=== PATIENT | female | born 2000 | race Caucasian/White ===

== ENCOUNTER → 2020-07-30 | Outpatient (CLI) | payer SELFPAY ==
[2020-07-30 12:34] LABS: HEMOGLOBIN 11.3 G/DL (11.5-16.0); MEAN PLATELET VOLUME 9.7 FL (7.4-10.4); WHITE BLOOD COUNT 9.1 10^3/uL (4.3-11.0)
[2020-07-30 23:01] LABS: HEPATITIS C ANTIBODY C Non-Reactive (Non-Reactive)
== END ==
LOC: LAB FS 11:16
PROVIDERS: ATTEND Family Medicine
DX: Z34.00 Encounter for supervision of normal first pregnancy, unspecified trimester (principal); Z3A.00 Weeks of gestation of pregnancy not specified
CPT/HCPCS: 36415; 85027; 86703; 86762; 86780; 86803; 86850; 86900; 86901; 87077; 87088; 87186; 87340

== ENCOUNTER → 2020-09-01 | Outpatient (CLI) | payer SELFPAY ==
[2020-09-01 13:20] LABS: HEMOGLOBIN 11.3 G/DL (11.5-16.0); WHITE BLOOD COUNT 10.7 10^3/uL (4.3-11.0)
[2020-09-01 13:21] LABS: MEAN PLATELET VOLUME 10.5 FL (7.4-10.4)
== END ==
LOC: LAB FS 10:51
PROVIDERS: ATTEND Family Medicine
DX: Z34.03 Encounter for supervision of normal first pregnancy, third trimester (principal)
CPT/HCPCS: 36415; 82950; 85027

== ENCOUNTER 2020-09-29 02:15 | Inpatient (IN) | payer OTHER ==
[~2020-09-29] VITALS: Ht 160 cm; Wt 78.4 kg
[2020-09-29] VITALS (20 sets, daily range): BP systolic 105–155; BP diastolic 55–87
[2020-09-29] MEDS ORDERED: D5 LR IV SOLUTION 1,000 ML IV ONE (03:13)
[2020-09-29] MEDS ORDERED: D5 LR IV SOLUTION 1,000 ML IV SCH (03:15)
[2020-09-29] MEDS ORDERED: AMPICILLIN FOR IV USE 2,000 MG in WATER (STERILE) FOR INJECTION 14.8 ML IV SCH (03:22)
[2020-09-29 03:32] LABS: BASOPHILS # (AUTO) 0.1 10^3/uL (0.0-0.1); BASOPHILS % (AUTO) 0 % (0-10); EOSINOPHILS % (AUTO) 0 % (0-10); HEMATOCRIT 34 % (35-52); HEMOGLOBIN 11.9 g/dL (11.5-16.0); LYMPHOCYTES # (AUTO) 1.6 10^3/uL (1.0-4.0); LYMPHOCYTES % (AUTO) 10 % (12-44); MEAN CORPUSCULAR HEMOGLOBIN 32 pg (25-34); MEAN CORPUSCULAR HGB CONC 35 g/dL (32-36); MEAN CORPUSCULAR VOLUME 92 fL (80-99); MEAN PLATELET VOLUME 10.9 fL (9.0-12.2); MONOCYTES % (AUTO) 6 % (0-12); NEUTROPHILS # (AUTO) 13.8 10^3/uL (1.8-7.8); NEUTROPHILS % (AUTO) 83 % (42-75); PLATELET COUNT 261 10^3/uL (130-400); WHITE BLOOD COUNT 16.6 10^3/uL (4.3-11.0)
[2020-09-29] MEDS: OXYTOCIN PRE-MIX DRIP 1,000 ML IV ONE ×2 (04:02→05:31)
[2020-09-29] MEDS ORDERED: LIDOCAINE/EPI 2% 1:200,00 (XYLOCAINE) 10 ML VIAL ONE (04:46)
--- NOTE | 2020-09-29 05:50 | History & Physical-OB ---
OB - Chief Complaint & HPI Date/Time Date of Admission: Date of Admission: Sep 29, 2020 at 03:00 Date seen by a Provider: Sep 29, 2020 Time Seen by a Provider: 03:00 Chief Complaint/History OB-Reason for Admission/Chief: Onset of Labor Hx : 1 Hx Para: 0 Expected Date of Delivery: Oct 26, 2020 Gestational Age in Weeks: 36 Gestational Age in Days: 1 Admission Nurse Assessment Rev: Yes Allergies and Home Medications Allergies Coded Allergies: No Known Drug Allergies (Unverified , 09/29/20) Patient Home Medication List Home Medication List Reviewed: Yes OB - History Hx of Present Care: Yes (with Dr. Victoria in [place]) Ultrasounds: Normal mid trimester US Obstetrical Complications: None Medical Complications: None Patient Past Medical History n/a Immunizations Hepatitis A: No Hepatitis B: No OB - Admission Exam Physical Exam Vitals: Vital Signs 09/29/20 03:54 Pulse 53 Resp 18 B/P (MAP) 139/87 (104) O2 Delivery Room Air HEENT: NCAT Heart: Rhythm Normal Lungs: Clear Abdomen: Gravid Extremities: Normal Reflexes: Normal Cervical Dilatation: 5cm Effacement: 75% Station: -1 Membranes: Ruptured Amniotic Fluid: Clear Heart Rate: 130's Accelerations: Accelerations Present Decelerations: No Decelerations Short Term Variability: Present Longterm Variability: Average (6-25) Contractions on Admission: 6-10 Minutes Apart Intensity: Mild Labs Laboratory Tests Test 09/29/20 03:20 Range/Units White Blood Count 16.6 H 4.3-11.0 10^3/uL Red Blood Count 3.75 L 3.80-5.11 10^6/uL Hemoglobin 11.9 11.5-16.0 g/dL Hematocrit 34 L 35-52 % Mean Corpuscular Volume 92 80-99 fL Mean Corpuscular Hemoglobin 32 25-34 pg Mean Corpuscular Hemoglobin Concent 35 32-36 g/dL Red Cell Distribution Width 12.4 10.0-14.5 % Platelet Count 261 130-400 10^3/uL Mean Platelet Volume 10.9 9.0-12.2 fL Immature Granulocyte % (Auto) 0 % Neutrophils (%) (Auto) 83 H 42-75 % Lymphocytes (%) (Auto) 10 L 12-44 % Monocytes (%) (Auto) 6 0-12 % Eosinophils (%) (Auto) 0 0-10 % Basophils (%) (Auto) 0 0-10 % Neutrophils # (Auto) 13.8 H 1.8-7.8 10^3/uL Lymphocytes # (Auto) 1.6 1.0-4.0 10^3/uL Monocytes # (Auto) 1.0 0.0-1.0 10^3/uL Eosinophils # (Auto) 0.0 0.0-0.3 10^3/uL Basophils # (Auto) 0.1 0.0-0.1 10^3/uL Immature Granulocyte # (Auto) 0.1 0.0-0.1 10^3/uL OB - Assessment/Plan/Diagnosis Assessment Assessment: active labor, rupture of membranes Admission Dx 20 yo @ 36.1 Active labor GBS unknown Admission Status: Inpatient Order (span 2 midnights) Reason for Inpatient Admission: Active labor at 36 weeks Plan Plan: Expectant Management Other Plan Ampicillin started due to , and unknown GBS. GILMA MABRY DO Sep 29, 2020 05:50
[2020-09-29] MEDS ORDERED: BENZ78AE5 TP (05:53)
[2020-09-29] MEDS ORDERED: IBUP-844 PO (05:53)
[2020-09-29] MEDS ORDERED: PNV1TABL67 PO (05:53)
[2020-09-29] MEDS ORDERED: ACHD5005 PO (05:53)
[2020-09-29] MEDS ORDERED: DCS100C PO (05:53)
--- NOTE | 2020-09-29 05:55 | Discharge Inst-Women's Service ---
Discharge Inst-Women's Serv Depart Medication/Instructions New, Converted or Re-Newed RX: RX on Chart Final Diagnosis PPD 1 NVD Problems Reviewed?: Yes Consults/Follow Up Additional Follow Up: Yes Orders/Referrals Dr. Victoria in 6 weeks Activity Activity: Activity as Tolerated Driving Instructions: No Driving for 1 Week NO SMOKING: NO SMOKING Nothing Inside Vagina: No Douching, No [place], No Tampons Diet Discharge Diet: No Restrictions Symptoms to Report to : Bleeding Excessive, Pain Increased, Fever Over 101 Degrees F, Vaginal Bleeding Increase, Questions/Concerns For Any Problems or Questions: Contact Your Physician GILMA MABRY DO Sep 29, 2020 05:55
[2020-09-29] MEDS ORDERED: TETANUS,DIPTH,PERTUSS P/F (BOOSTRIX) 0.5 ML VIAL IM ONE (06:00)
[2020-09-29] MEDS ORDERED: WITCH HAZEL(TUCKS) 40 EA JAR TOP PRN (06:00)
[2020-09-29] MEDS ORDERED: BENZOCAINE/MENTHOL (DERMOPLAST) 60 ML CAN TP PRN (06:00)
[2020-09-29] MEDS ORDERED: DIBUCAINE (NUPERCAINAL) 1% OINT 30 GM TOP PRN (06:00)
[2020-09-29] MEDS ORDERED: CATHETER FLUSH 10 ML SYR IV SCH ×2 (06:00)
[2020-09-29] MEDS ORDERED: OXYTOCIN PRE-MIX DRIP 500 ML IV SCH (06:00)
[2020-09-29] MEDS ORDERED: MEASLES,MUMPS,RUBELLA 1 EA INJ SQ ONE (06:00)
[2020-09-29] MEDS ORDERED: HYDROcodone/APAP 5 MG/325 MG (LORTAB) TAB PO PRN (06:00)
--- NOTE | 2020-09-29 06:00 | OB Labor & Delivery Record ---
L&D History Date of Service Date of Service: Sep 29, 2020 History Expected Date of Delivery: Oct 26, 2020 Gestational Age in Weeks: 36 Hx : 1 Hx Para: 0 Complications Events: Routine care Operative Indications (Cesarea: N/A-Vaginal Delivery Intrapartal Events: None L&D Stage1 Stage One Onset of Labor - Date: Sep 29, 2020 Monitors and Tracing Monitor Mode: External Heart Rate: 130 Monitor Decelerations: None Station: -2 Shelter Variability: Average (6-10) Short Term Variability: Present Presentation: Vertex Vital Signs VS - Last 72 Hours, by Label 09/29/20 09/29/20 09/29/20 02:35 02:35 03:54 Temp 37.2 37.2 Pulse 69 69 53 Resp 18 18 18 B/P (MAP) 140/77 (98) 139/87 (104) Pulse Ox 99 99 O2 Delivery Room Air Room Air Room Air Rupture of Membranes Spontaneous Ruture of Membrane: Yes Amniotic Membrane Rupture Time: 0000 Amniotic Membrane Fluid Desc.: Clear Vaginal Bleeding Description: Normal Show Progress/Notes Patient admitted in active labor 6 cm SROM. She progressed with no analgesia and no augmentation to complete and +3 station L&D Stage2 Stage Two Stage II Date: Sep 29, 2020 Monitors and Tracing Monitor Mode: External Heart Rate: 130 Monitor Accelerations: Uniform Monitor Decelerations: None Plywood Patcher Variability: Average (6-10) Short Term Variability: Present Position: Right Occiput Anterior Presentation: Vertex Cord Descript/Complications Cord Vessel Description: 3 Vessels Delivery Type Infant Delivery Method: Spontaneous Vaginal Anterior Shoulder: Right Episiotomy/Perineal Laceration Laceraction(s)/Extensions: Yes Episiotomy Description: Perineal Extension/lac, 1st degree Degree (describe repair) 1st degree perineal laceration repaired using 3-0 rapide in usual fashion Condition of Infant Delivery 1 minute Comment: 8 5 minute Comment: 9 Notes Live male infant weight pending Condition of Infant Condition of : Living Exam: No Observed Abnormalities Resuscitation Resuscitation: N/A - Spontaneous Resp L&D Stage3 Stage Three Stage III Date: Sep 29, 2020 Pictocin Pitocin Administration Comment: 30 mu wide open after delviery of placenta Placenta Delivery Placenta Delivery: Spontaneous Delivery Summary Summary Estimated blood loss (mL): 300 Attending at delivery: Gilma Mabry DO Condition of Delivery Examined: Cervix Examined, Uterus Explored Post Hemorrhage: No Condition of Mother stable Condition of Infant (s) stable GILMA MABRY DO Sep 29, 2020 06:00
[2020-09-29] MEDS ORDERED: AMPICILLIN FOR IV USE 1,000 MG in WATER (STERILE) FOR INJECTION 7.4 ML IV SCH (07:30)
[2020-09-29] MEDS: IBUPROFEN 600 MG (MOTRIN) TAB PO SCH ×3 (08:00→22:10)
[2020-09-29] MEDS: PRENATAL VITAMIN 1 EA TAB PO SCH ×2 (09:00→13:22)
[2020-09-29] MEDS: DOCUSATE SODIUM 100 MG (COLACE) CAP PO SCH ×3 (09:00→20:34)
[2020-09-29] MEDS: FERROUS SULF 325 MG (IRON) TAB PO SCH ×2 (09:00→13:22)
[2020-09-30 01:00] VITALS: BP 113/53
[2020-09-30] MEDS: IBUPROFEN 600 MG (MOTRIN) TAB PO SCH ×3 (04:30→18:00)
[2020-09-30 05:30] VITALS: BP 120/75
[2020-09-30 06:16] LABS: BASOPHILS % (AUTO) 0 % (0-10); EOSINOPHILS # (AUTO) 0.1 10^3/uL (0.0-0.3); EOSINOPHILS % (AUTO) 1 % (0-10); HEMATOCRIT 35 % (35-52); LYMPHOCYTES # (AUTO) 1.9 10^3/uL (1.0-4.0); LYMPHOCYTES % (AUTO) 17 % (12-44); MEAN CORPUSCULAR HEMOGLOBIN 32 pg (25-34); MEAN CORPUSCULAR HGB CONC 35 g/dL (32-36); MEAN CORPUSCULAR VOLUME 92 fL (80-99); MEAN PLATELET VOLUME 10.9 fL (9.0-12.2); MONOCYTES # (AUTO) 0.8 10^3/uL (0.0-1.0); MONOCYTES % (AUTO) 7 % (0-12); NEUTROPHILS # (AUTO) 8.2 10^3/uL (1.8-7.8); NEUTROPHILS % (AUTO) 74 % (42-75); PLATELET COUNT 239 10^3/uL (130-400)
[2020-09-30 08:40] VITALS: BP 101/58
--- NOTE | 2020-09-30 10:52 | Progress Note ---
Standard Progress Note Progress Notes/Assess & Plan Date Seen by a Provider: Sep 30, 2020 Time Seen by a Provider: 10:51 Progress/Assessment & Plan This patient is without complaint. She is ambulating, voiding, tolerating oral intake well and has good pain control. Vital Signs Date Time Temp Pulse Resp B/P (MAP) Pulse Ox O2 Delivery O2 Flow Rate FiO2 09/30/20 08:40 36.6 62 18 101/58 (72) Room Air 09/30/20 05:30 36.4 66 16 120/75 (90) 98 Room Air 09/30/20 01:00 36.5 56 16 113/53 (73) 98 Room Air 09/29/20 20:30 36.5 66 16 124/58 (80) 98 Room Air 09/29/20 16:00 36.7 61 18 118/64 (82) 98 Room Air 09/29/20 13:00 36.8 66 18 119/56 (77) 97 Room Air Vital signs are stable. Patient is afebrile. Abdomen is benign. Extremities show no clubbing or cyanosis. Assessment and plan day #1 status post vaginal delivery doing well. Plan is for routine convalescent care with consideration of discharge home LUIS ISLAS MD Sep 30, 2020 10:52
[2020-09-30 17:10] VITALS: BP 100/61
[2020-09-30 19:35] VITALS: BP 128/63
[2020-10-01 06:00] VITALS: BP 121/58
--- NOTE | 2020-10-01 08:18 | Progress Note ---
Standard Progress Note Progress Notes/Assess & Plan Date Seen by a Provider: Oct 01, 2020 Time Seen by a Provider: 08:17 Progress/Assessment & Plan This patient is without complaint. She is ambulating, voiding, tolerating oral intake well and has good pain control. Vital Signs Date Time Temp Pulse Resp B/P (MAP) Pulse Ox O2 Delivery O2 Flow Rate FiO2 09/30/20 08:40 36.6 62 18 101/58 (72) Room Air 09/30/20 05:30 36.4 66 16 120/75 (90) 98 Room Air 09/30/20 01:00 36.5 56 16 113/53 (73) 98 Room Air 09/29/20 20:30 36.5 66 16 124/58 (80) 98 Room Air 09/29/20 16:00 36.7 61 18 118/64 (82) 98 Room Air 09/29/20 13:00 36.8 66 18 119/56 (77) 97 Room Air Vital signs are stable. Patient is afebrile. Abdomen is benign. Extremities show no clubbing or cyanosis. Assessment and plan day #1 status post vaginal delivery doing well. Plan is for routine convalescent care with consideration of discharge hOME October 01, 2020 Patient is without complaint. She is ambulating, voiding, tolerating oral intake well has good pain control. Patient is requesting discharge home. Vital signs are stable. Patient is afebrile. Fundus is firm below the umbilicus nontender. Extremities show no clubbing cyanosis. Is normal in size. Assessment and plan day #2 status post term spontaneous vaginal to be doing well. Plan is to discharge home with follow-up in clinic LUIS ISLAS MD Oct 01, 2020 08:18
[2020-10-01 08:20] VITALS: BP 106/59
== END 2020-10-01 11:30 | disposition home or self-care (01) | DRG 807 ==
LOC: WSo 02:15 → LDRP 02:16 → WSo 02:59 → LDRP 03:00
PROVIDERS: ADMIT Obstetrics & Gynecology; ATTEND Obstetrics & Gynecology
PROC: 10E0XZZ Delivery of Products of Conception, External Approach (ICD-10-PCS; principal; 2020-09-29)
PROC: 0HQ9XZZ Repair Perineum Skin, External Approach (ICD-10-PCS; 2020-09-29)
DX: O60.14X0 Preterm labor third trimester with preterm delivery third trimester, not applicable or unspecified (principal); Z37.0 Single live birth; O70.0 First degree perineal laceration during delivery; Z3A.36 36 weeks gestation of pregnancy
CPT/HCPCS: 36415; 85025; 86850; 86900; 86901; 88307; 99212

== ENCOUNTER 2022-10-09 11:04 | Emergency (ER) | payer SELFPAY ==
[~2022-10-09] VITALS: Ht 157.5 cm; Wt 73.9 kg
[~2022-10-09 11:04] MED LIST: ACHD5005 PO; BENZ78AE5 TP; DOCU-239 PO; IBUP-844 PO; PNV1TABL67 PO
--- NOTE | 2022-10-09 11:21 | ED GU-Female ---
General Chief Complaint: OB < 20 WEEKS Stated Complaint: VAGINAL BLEEDING Nursing Triage Note: PT AMBULATE TO ROOM FS01 WITHOUT DIFFICULTY WITH C/O VAGINAL BLEEDING STARTING SUNDAY THAT HAS WORSENED TODAY. PT REPORTS LMP WAS IN JULY AND BELIEVES SHE . Source: patient Exam Limitations: no limitations History of Present Illness Date Seen by Provider: Oct 09, 2022 Time Seen by Provider: 11:07 Initial Comments 22-year-old female at roughly 12w3d EGA by LMP sometime in early July coming in due to vaginal bleeding from walk in clinic. She has not had any OB care at this time. The first baby was born in the hospital, second baby was born at home as she is [facility]. The patient started having some vaginal bleeding 2 days ago, and its picked up a little bit more today. She last changed her pad about a couple hours ago, and she feels like it is probably saturated and needs changed again. She is wanting to know if she is having a miscarriage. Denies any significant abdominal pain, vaginal discharge, dysuria, diarrhea, fever, chills, or any other concerns. Allergies and Home Medications Allergies Coded Allergies: No Known Drug Allergies (Unverified , 09/29/20) Patient Home Medication List Home Medication List Reviewed: Yes Benzocaine/Menthol (Dermoplast Pain Relieving [place]) 78 Gm Aerosol, 56 ML TP UD PRN for PAIN- SEE INSTRUCTIONS Prescribed by: GILMA MABRY on 09/29/20552 Docusate Sodium (Dok) 100 Mg Capsule, 100 MG PO BID PRN for CONSTIPATION-1ST LINE Prescribed by: GILMA MABRY on 09/29/20 05 Hydrocodone Bit/Acetaminophen (HYDROcodone/APAP 5 MG/325 MG TAB) 1 Tab Tab, 1-2 EA PO Q6HR PRN for PAIN-MODERATE (5-7) Prescribed by: GILMA MABRY on 09/29/20 05 Ibuprofen (Ibu) 600 Mg Tablet, 600 MG PO Q6HR Prescribed by: GILMA MABRY on 09/29/20 05 Pnv with Ca,No.72/Iron/FA (Pnv Plus Multivit Tab) 1 Each Tablet, 1 EA PO DAILY@0700 Prescribed by: GILMA MABRY on 09/29/20 05 Review of Systems Review of Systems Constitutional: No fever EENTM: no symptoms reported Respiratory: no symptoms reported Cardiovascular: no symptoms reported Gastrointestinal: no symptoms reported Genitourinary: see HPI Musculoskeletal: no symptoms reported Skin: no symptoms reported Psychiatric/Neurological: No Symptoms Reported Endocrine: No Symptoms Reported Hematologic/Lymphatic: No Symptoms Reported All Other Systemes Reviewed Negative Unless Noted: Yes Past Whtuafn-Djvjuj-Uhxvlt Hx Patient Social History Tobacco Use?: No Use of E-Cig and/or Vaping dev: No Substance use?: No Alcohol Use?: No Pt feels they are or have been: Unable to obtain Past Medical History Surgeries: No Physical Exam Vital Signs Vital Signs - First Documented 10/09/22 11:07 Temp 36.4 Pulse 75 Resp 17 B/P (MAP) 121/74 (90) O2 Delivery Room Air Capillary Refill : Less Than 3 Seconds Height, Weight, BMI Height: '" Weight: lbs. oz. kg; 29.00 BMI Method: General Appearance: WD/WN, no apparent distress HEENT: PERRL/EOMI, normal ENT inspection, pharynx normal Neck: non-tender, full range of motion, supple, normal inspection Cardiovascular: regular rate, rhythm, no edema, no murmur Respiratory: chest non-tender, lungs clear, normal breath sounds, no respiratory distress, no accessory muscle use Gastrointestinal: normal bowel sounds, non tender, soft; No distended, No guarding, No rebound Back: normal inspection, no CVA tenderness Extremities: normal range of motion, non-tender, normal inspection, no pedal edema, no calf tenderness, normal capillary refill Neurologic/Psychiatric: no motor/sensory deficits, alert, normal mood/affect Skin: normal color, warm/dry Progress/Results/Core Measures Suspected Sepsis SIRS Temperature: Pulse: 75 Respiratory Rate: 17 Laboratory Tests 10/09/22 11:20: White Blood Count 7.4 Blood Pressure 121 /74 Mean: 90 Laboratory Tests 10/09/22 11:20: Creatinine 0.74, INR Comment 1.0, Platelet Count 335, Total Bilirubin 0.5 Results/Orders Lab Results Laboratory Tests Test 10/09/22 11:20 10/09/22 11:37 Range/Units White Blood Count 7.4 4.3-11.0 10^3/uL Red Blood Count 4.09 3.80-5.11 10^6/uL Hemoglobin 12.4 11.5-16.0 g/dL Hematocrit 36 35-52 % Mean Corpuscular Volume 89 80-99 fL Mean Corpuscular Hemoglobin 30 25-34 pg Mean Corpuscular Hemoglobin Concent 34 32-36 g/dL Red Cell Distribution Width 12.3 10.0-14.5 % Platelet Count 335 130-400 10^3/uL Mean Platelet Volume 9.7 9.0-12.2 fL Immature Granulocyte % (Auto) 0 % Neutrophils (%) (Auto) 61 42-75 % Lymphocytes (%) (Auto) 30 12-44 % Monocytes (%) (Auto) 8 0-12 % Eosinophils (%) (Auto) 1 0-10 % Basophils (%) (Auto) 1 0-10 % Neutrophils # (Auto) 4.5 1.8-7.8 10^3/uL Lymphocytes # (Auto) 2.2 1.0-4.0 10^3/uL Monocytes # (Auto) 0.6 0.0-1.0 10^3/uL Eosinophils # (Auto) 0.1 0.0-0.3 10^3/uL Basophils # (Auto) 0.1 0.0-0.1 10^3/uL Immature Granulocyte # (Auto) 0.0 0.0-0.1 10^3/uL Prothrombin Time 13.3 12.2-14.7 SEC INR Comment 1.0 0.8-1.4 Activated Partial Thromboplast Time 31 24-35 SEC Sodium Level 137 135-145 MMOL/L Potassium Level 4.1 3.6-5.0 MMOL/L Chloride Level 103 98-107 MMOL/L Carbon Dioxide Level 21 21-32 MMOL/L Anion Gap 13 5-14 MMOL/L Blood Urea Nitrogen 10 7-18 MG/DL Creatinine 0.74 0.60-1.30 MG/DL Estimat Glomerular Filtration Rate 117 BUN/Creatinine Ratio 14 Glucose Level 95 70-105 MG/DL Calcium Level 9.4 8.5-10.1 MG/DL Corrected Calcium 9.2 8.5-10.1 MG/DL Total Bilirubin 0.5 0.1-1.0 MG/DL Aspartate Amino Transf (AST/SGOT) 14 5-34 U/L Alanine Aminotransferase (ALT/SGPT) 11 0-55 U/L Alkaline Phosphatase 52 40-136 U/L Total Protein 7.4 6.4-8.2 GM/DL Albumin 4.3 3.2-4.5 GM/DL Lipase 19 8-78 U/L Human Chorionic Gonadotropin, Quant 5844 H <5 MIU/ML Urine Color RED H Urine Clarity TURBID Urine pH 5.5 5-9 Urine Specific [place] 1.020 1.016-1.022 Urine Protein 1+ H NEGATIVE Urine Glucose (UA) NEGATIVE NEGATIVE Urine Ketones NEGATIVE NEGATIVE Urine Nitrite NEGATIVE NEGATIVE Urine Bilirubin NEGATIVE NEGATIVE Urine Urobilinogen 1.0 < = 1.0 MG/DL Urine Leukocyte Esterase TRACE H NEGATIVE Urine RBC (Auto) 3+ H NEGATIVE Urine RBC 50-100 H /HPF Urine WBC 0-2 /HPF Urine Squamous Epithelial Cells RARE /HPF Urine Crystals NONE /LPF Urine Bacteria NEGATIVE /HPF Urine Casts NONE /LPF Urine Mucus NEGATIVE /LPF Urine Culture Indicated NO My Orders Orders - MICH HARRELL MD Cbc With Automated Diff (10/09/22 11:13) Comprehensive Metabolic Panel (10/09/22 11:13) Hcg,Quantitative (10/09/22 11:13) Lipase (10/09/22 11:13) Ua Culture If Indicated (10/09/22 11:13) Protime With Inr (10/09/22 11:14) Partial Thromboplastin Time (10/09/22 11:14) Us Ob<14 Wks Sngle W/Transvag (10/09/22 11:31) Vital Signs/I&O 10/09/22 11:07 Temp 36.4 Pulse 75 Resp 17 B/P (MAP) 121/74 (90) O2 Delivery Room Air Capillary Refill : Less Than 3 Seconds Blood Pressure Mean: 90 Progress Note : Progress Note 22-year-old female with above history coming in now with vaginal bleeding. ABCs were intact and vitals were stable on presentation. Physical exam with a soft and nontender abdomen. On review of the chart, the patient is Rh+ and does not need RhoGAM. She does have some vaginal bleeding, but its not enough to be of concern on exam. I did a [id number] ultrasound and I am not seeing an intrauterine . Because of this, formal ultrasound was ordered, this was confirming miscarriage and no ectopic . Beta-hCG greater than 5000, hemoglobin normal, urinalysis without evidence of infection. I considered giving TXA, however the bleeding slowed down on its own. I believe the patient is otherwise stable for discharge with outpatient follow- up. She was sent home with strict return precautions. Departure Impression Primary Impression: Miscarriage Disposition: 01 HOME, SELF-CARE Condition: Stable Departure-Patient Inst. Decision time for Depature: 12:25 Referrals: MICHAEL LOBATO MD (PCP) Primary Care Physician Patient Instructions: Miscarriage (DC) Add. Discharge Instructions: You unfortunately have had a miscarriage. Expect bleeding for the next couple of days. The bleeding should start to slow down. If you fully saturate and bleed through a pad every hour for several hours, then we would want you to come back to the ER. MICH HARRELL MD Oct 09, 2022 11:21
[2022-10-09 11:30] LABS: BASOPHILS # (AUTO) 0.1 10^3/uL (0.0-0.1); BASOPHILS % (AUTO) 1 % (0-10); EOSINOPHILS # (AUTO) 0.1 10^3/uL (0.0-0.3); EOSINOPHILS % (AUTO) 1 % (0-10); HEMATOCRIT 36 % (35-52); HEMOGLOBIN 12.4 g/dL (11.5-16.0); LYMPHOCYTES # (AUTO) 2.2 10^3/uL (1.0-4.0); LYMPHOCYTES % (AUTO) 30 % (12-44); MEAN CORPUSCULAR HEMOGLOBIN 30 pg (25-34); MEAN CORPUSCULAR HGB CONC 34 g/dL (32-36); MEAN CORPUSCULAR VOLUME 89 fL (80-99); MEAN PLATELET VOLUME 9.7 fL (9.0-12.2); MONOCYTES # (AUTO) 0.6 10^3/uL (0.0-1.0); MONOCYTES % (AUTO) 8 % (0-12); NEUTROPHILS # (AUTO) 4.5 10^3/uL (1.8-7.8); NEUTROPHILS % (AUTO) 61 % (42-75); PLATELET COUNT 335 10^3/uL (130-400); WHITE BLOOD COUNT 7.4 10^3/uL (4.3-11.0)
[2022-10-09 11:40] LABS: BILIRUBIN,URINE NEGATIVE (NEGATIVE); CLARITY,URINE TURBID; COLOR,URINE RED; GLUCOSE, URINE (UA) NEGATIVE (NEGATIVE); KETONES,URINE NEGATIVE (NEGATIVE); LEUKOCYTE ESTERASE ,URINE TRACE (NEGATIVE); NITRITE,URINE NEGATIVE (NEGATIVE); PH,URINE 5.5 (5-9); PROTEIN,URINE 1+ (NEGATIVE)
[2022-10-09 11:44] LABS: PROTHROMBIN TIME PATIENT 13.3 SEC (12.2-14.7)
[2022-10-09 11:48] LABS: BACTERIA,URINE NEGATIVE /HPF; RBC,URINE 50-100 /HPF; SQUAMOUS EPITHELIAL CELL,UR RARE /HPF; WBC,URINE 0-2 /HPF
[2022-10-09 12:00] LABS: ALBUMIN 4.3 GM/DL (3.2-4.5); BILIRUBIN,TOTAL 0.5 MG/DL (0.1-1.0); CALCIUM 9.4 MG/DL (8.5-10.1); CREATININE SERUM 0.74 MG/DL (0.60-1.30); POTASSIUM 4.1 MMOL/L (3.6-5.0); TOTAL PROTEIN 7.4 GM/DL (6.4-8.2)
[2022-10-09 12:27] VITALS: BP 127/66
--- NOTE | 2022-10-09 12:37 | Diagnostic Imaging Report ---
US OB<14 WKS SNGLE W/TRANSVAG INDICATION: Vaginal bleeding and passing clot. COMPARISON: None available. TECHNIQUE: Transabdominal and transvaginal imaging of the pelvis. FINDINGS: Uterus measures 7.9 x 4.7 x 4.0 cm. No gestational sac is seen within the uterus. There is mobile hyperechoic debris within the endometrium which has some vascularity in it. No concerning adnexal mass to suggest ectopic . Both ovaries are identified and physiologic in appearance. Blood flow seen in both ovaries by color Doppler imaging. IMPRESSION: 1. Sonographic features favor failed . 2. No intrauterine or ectopic appreciated. Dictated by: Dictated on workstation # [id number]
== END 2022-10-09 12:25 | disposition home or self-care (01) ==
LOC: EDUNIT# 11:04 → ER FS 11:06
DX: O03.9 Complete or unspecified spontaneous abortion without complication (principal)
CPT/HCPCS: 36415; 76801; 76817; 80053; 81000; 83690; 84702; 85025; 85610; 85730